=== PATIENT | male | born 1995 | race African-American/Black ===

== ENCOUNTER 2018-03-15 05:07 | Emergency (ER) | payer MEDICAID ==
[~2018-03-15] VITALS: Ht 182.9 cm; Wt 77.0 kg
[2018-03-15] MEDS ORDERED: POVIDONE-IODINE 10% TOPICAL SOLN 240ML TOP ONE (06:30)
[2018-03-15] MEDS ORDERED: BACITRACIN ZINC OINT UDPKT TOP ONE (07:15)
[2018-03-15] MEDS ORDERED: TETANUS AND DIPHTHERIA TOX/PF 0.5ML SYR (ADULT) IM ONE (08:00)
[2018-03-15 11:15] VITALS: BP 125/83
== END 2018-03-15 11:49 | disposition home or self-care (01) ==
LOC: ER 05:07
DX: S90.31XA Contusion of right foot, initial encounter (principal); S91.301A Unspecified open wound, right foot, initial encounter; J45.909 Unspecified asthma, uncomplicated; X58.XXXA Exposure to other specified factors, initial encounter; Y93.89 Activity, other specified; Y92.89 Other specified places as the place of occurrence of the external cause; Y99.8 Other external cause status
CPT/HCPCS: 73610; 73630; 90471; 99284; A4246; 90714

== ENCOUNTER 2018-03-15 14:57 | Emergency (ER) | payer MEDICAID ==
[~2018-03-15] VITALS: Ht 177.8 cm; Wt 68.0 kg
[2018-03-15 15:00] VITALS: BP 123/85
== END 2018-03-15 19:30 | disposition left against medical advice (07) ==
LOC: ER 14:57
DX: M25.571 Pain in right ankle and joints of right foot (principal); Z53.21 Procedure and treatment not carried out due to patient leaving prior to being seen by health care provider